=== PATIENT | male | born 1990 | race Two or more races ===

== ENCOUNTER 2021-02-15 05:31 | Emergency (ER) | payer OTHER, SELFPAY | END 2021-02-15 06:22 | disposition home or self-care (01) | LOC: MADERS 05:31 | DX: S60.032A Contusion of left middle finger without damage to nail, initial encounter (principal); F17.220 Nicotine dependence, chewing tobacco, uncomplicated; W22.8XXA Striking against or struck by other objects, initial encounter; Y99.0 Civilian activity done for income or pay | CPT/HCPCS: 29125 ==

== ENCOUNTER 2021-03-17 10:40 | Emergency (ER) | payer SELFPAY | END 2021-03-17 11:52 | disposition home or self-care (01) | LOC: MADERS 10:40 | DX: M54.6 Pain in thoracic spine (principal); F17.220 Nicotine dependence, chewing tobacco, uncomplicated; M19.90 Unspecified osteoarthritis, unspecified site | CPT/HCPCS: 99283 ==

== ENCOUNTER 2021-03-28 12:07 | Emergency (ER) | payer SELFPAY | END 2021-03-28 13:02 | disposition home or self-care (01) | LOC: MADERS 12:07 | DX: S39.840A Fracture of corpus cavernosum penis, initial encounter (principal); F17.220 Nicotine dependence, chewing tobacco, uncomplicated; M19.90 Unspecified osteoarthritis, unspecified site; X58.XXXA Exposure to other specified factors, initial encounter | CPT/HCPCS: 99283 ==

== ENCOUNTER 2021-04-17 17:23 | Emergency (ER) | payer SELFPAY | END 2021-04-17 18:46 | disposition home or self-care (01) | LOC: MADERS 17:23 | DX: M54.6 Pain in thoracic spine (principal); M19.90 Unspecified osteoarthritis, unspecified site; F17.220 Nicotine dependence, chewing tobacco, uncomplicated | CPT/HCPCS: 99281 ==

== ENCOUNTER 2022-07-05 15:37 | Emergency (ER) | payer SELFPAY | END 2022-07-05 16:30 | disposition home or self-care (01) | LOC: MADERS 15:37 | DX: S20.229A Contusion of unspecified back wall of thorax, initial encounter (principal); M19.90 Unspecified osteoarthritis, unspecified site; F17.220 Nicotine dependence, chewing tobacco, uncomplicated; W10.9XXA Fall (on) (from) unspecified stairs and steps, initial encounter; Y92.009 Unspecified place in unspecified non-institutional (private) residence as the place of occurrence of the external cause | CPT/HCPCS: 99283 ==

== ENCOUNTER 2023-01-13 05:05 | Emergency (ER) | payer SELFPAY ==
[2023-01-13] MEDS ORDERED: Acetaminophen 500 MG TAB ONE (05:41)
[2023-01-13] MEDS ORDERED: predniSONE 20 MG TAB ONE (05:41)
== END 2023-01-13 05:50 | disposition home or self-care (01) ==
LOC: MADERS 05:05
DX: J02.9 Acute pharyngitis, unspecified (principal); H61.23 Impacted cerumen, bilateral; F17.220 Nicotine dependence, chewing tobacco, uncomplicated
CPT/HCPCS: 87081; 87430; 99283; J7512

== ENCOUNTER 2024-04-26 12:34 | Emergency (ER) | payer SELFPAY | END 2024-04-26 13:38 | disposition home or self-care (01) | LOC: MADERS 12:34 | DX: S62.636A Displaced fracture of distal phalanx of right little finger, initial encounter for closed fracture (principal); G56.21 Lesion of ulnar nerve, right upper limb; F17.220 Nicotine dependence, chewing tobacco, uncomplicated; X50.9XXA Other and unspecified overexertion or strenuous movements or postures, initial encounter ==

== ENCOUNTER 2024-07-07 09:06 | Emergency (ER) | payer BC, SELFPAY | END 2024-07-07 11:15 | disposition home or self-care (01) | LOC: MADERS 09:06 | DX: B34.9 Viral infection, unspecified (principal); F17.220 Nicotine dependence, chewing tobacco, uncomplicated | CPT/HCPCS: 87400; 87426; 99283 ==

== ENCOUNTER 2025-05-02 22:14 | Emergency (ER) | payer BC, OTHER ==
[2025-05-02 22:50] LABS: #Basophils 0.2 thou/uL (0.0-0.2); #Eosinophils 0.1 thou/uL (0.0-0.7); #Lymphocytes 2.7 thou/uL (1.20-3.40); #Monocytes 1.0 thou/uL (0.11-0.59); #Neutrophils 9.0 thou/uL (1.40-6.50); %Basophils 1.2 % (0.0-1.0); %Eosinophils 0.8 % (0.0-10.0); %Lymphocytes 20.9 % (21.0-51.0); %Monocytes 7.9 % (0.0-10.0); %Neutrophils 69.2 % (42.0-75.0); Hematocrit 47.6 % (42.0-52.0); Hemoglobin 15.2 g/dL (14.0-18.0); Mean Corpuscular Hemoglobin 28.7 pg (27.0-31.0); Mean Corpuscular Volume 89.9 fl (78.0-98.0); Platelet Count 240 10x3/uL (130-400); Red Blood Cell (RBC) Count 5.30 mill/uL (4.70-6.10); White Blood Cell (WBC) Count 13.0 10x3/uL (4.8-10.8)
[2025-05-02 23:01] LABS: ALT (SGPT) 19 U/L (Less than 45); AST (SGOT) 27 U/L (11-34); Albumin 4.7 g/dL (3.1-4.5); Alkaline Phosphatase 67 U/L (40-110); Anion Gap 20 mmol/L (10-20); BUN (Urea Nitrogen) 14 mg/dL (8.9-20.6); Bilirubin, Total 1.0 mg/dL (0.3-1.2); Calc. Creatinine Clearance 0 mL/min (70-130); Calcium 9.5 mg/dL (7.8-10.44); Carbon Dioxide 18 mmol/L (22-29); Chloride 108 mmol/L (98-107); Globulin 3.2 g/dL (2.4-3.5); Glucose 102 mg/dL (70-105); Potassium 2.7 mmol/L (3.5-5.1); Sodium 143 mmol/L (136-145)
== END 2025-05-02 23:32 | disposition home or self-care (01) ==
LOC: MADERS 22:14
DX: M54.50 Low back pain, unspecified (principal); M54.6 Pain in thoracic spine; F17.220 Nicotine dependence, chewing tobacco, uncomplicated
CPT/HCPCS: 80053; 85025; 96374; J1885